=== PATIENT | male | born 1965 | race African-American/Black ===

== ENCOUNTER 2017-03-06 15:07 | Emergency (ER) | payer OTHER ==
[~2017-03-06 15:07] MED LIST: ACET325T9 PO; BACL10TA PO; LAMO25TA5 PO; LEVE100S18 PO; SCOP1PAT TP; SULF200O PEG
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
[2017-03-06 18:04] VITALS: BP 111/80
== END 2017-03-06 18:16 | disposition home or self-care (01) ==
LOC: ER 15:07
DX: J95.01 Hemorrhage from tracheostomy stoma (principal); K02.9 Dental caries, unspecified; R58 Hemorrhage, not elsewhere classified; Z88.5 Allergy status to narcotic agent; Y83.8 Other surgical procedures as the cause of abnormal reaction of the patient, or of later complication, without mention of misadventure at the time of the procedure; Y92.89 Other specified places as the place of occurrence of the external cause
CPT/HCPCS: 31502; 99284-25

== ENCOUNTER → 2017-09-03 | Day surgery (SDC) | payer OTHER ==
[~2017-09-03] MED LIST changes: -ACET325T9 PO; -BACL10TA PO; -LAMO25TA5 PO; -LEVE100S18 PO; +LIDOCAINE 1% PF 2 ML VIAL. ID; +MIDAZOLAM HCL/PF 2 MG/2 ML VIAL. IV; +PROPOFOL 20 ML IV; -SCOP1PAT TP; -SULF200O PEG; +fentaNYL PF VIAL 100 MCG/2 ML VIAL IV
[2017-09-03] MEDS: IV RINGERS,LACTATED 1000ML 1,000 ML IV (07:39)
== END ==
LOC: SURG 07:19
DX: K94.23 Gastrostomy malfunction (principal)
CPT/HCPCS: 43246; J2704

== ENCOUNTER → 2018-07-12 | Day surgery (SDC) | payer MEDICAID, OTHER ==
[~2018-07-12] MED LIST changes: +ACET325T9 PO; +BACL10TA PO; +IV RINGERS,LACTATED 1000ML 1,000 ML IV SCH; +LAMO25TA5 PO; +LEVE100S18 PO; -LIDOCAINE 1% PF 2 ML VIAL. ID; -MIDAZOLAM HCL/PF 2 MG/2 ML VIAL. IV; -PROPOFOL 20 ML IV; +SCOP1PAT11 TP; +SULF200O PEG; +diphenhydrAMINE 50 MG/ML VIAL IV ONE; +diphenhydrAMINE 50 MG/ML VIAL ONE; -fentaNYL PF VIAL 100 MCG/2 ML VIAL IV
[2018-07-12 17:12] VITALS: BP 145/68
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
== END | disposition home or self-care (01) ==
LOC: SURG 15:27
PROVIDERS: ATTEND Internal Medicine Gastroenterology
DX: K94.23 Gastrostomy malfunction (principal); K29.50 Unspecified chronic gastritis without bleeding; J45.909 Unspecified asthma, uncomplicated; M19.90 Unspecified osteoarthritis, unspecified site; Z79.899 Other long term (current) drug therapy; Z98.890 Other specified postprocedural states; Z87.11 Personal history of peptic ulcer disease; Y83.8 Other surgical procedures as the cause of abnormal reaction of the patient, or of later complication, without mention of misadventure at the time of the procedure
CPT/HCPCS: 43246; 99152; J1200; 99151; G0500

== ENCOUNTER 2019-06-21 11:34 | Emergency (ER) | payer OTHER ==
[~2019-06-21] VITALS: Ht 185.4 cm; Wt 79.4 kg
[~2019-06-21 11:34] MED LIST changes: -IV RINGERS,LACTATED 1000ML 1,000 ML IV SCH; -diphenhydrAMINE 50 MG/ML VIAL IV ONE; -diphenhydrAMINE 50 MG/ML VIAL ONE
[2019-06-21 13:50] VITALS: BP 136/85
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
== END 2019-06-21 14:24 | disposition home or self-care (01) ==
LOC: ER 11:34
DX: T85.528A Displacement of other gastrointestinal prosthetic devices, implants and grafts, initial encounter (principal); Z87.440 Personal history of urinary (tract) infections; Y73.2 Prosthetic and other implants, materials and accessory gastroenterology and urology devices associated with adverse incidents
CPT/HCPCS: 43762; 99284

== ENCOUNTER 2021-07-21 14:39 | Inpatient (IN) | payer OTHER ==
[2021-07-21] VITALS (8 sets, daily range): BP systolic 86–107; BP diastolic 46–61
[~2021-07-21] VITALS: Ht 170.2 cm; Wt 40.5 kg
[~2021-07-21 14:39] MED LIST changes: -SCOP1PAT11 TP; +SCOP1PAT12 TP
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
[2021-07-21] MEDS ORDERED: IV NORMAL SALINE 1000ML BAG 1,000 ML IV ONE ×2 (15:00→17:30)
[2021-07-21] MEDS ORDERED: ACETAMINOPHEN 650 MG SUPP.RECT. PR ONE (15:00)
[2021-07-21 16:12] LABS: BASO % 0 % (0-3); EOS % 0 % (0-3); HEMOGLOBIN 17.7 g/dL (13.0-17.5); LYMPH # 0.3 x10^3/uL (1.0-4.8); LYMPH % 3 % (24-48); MEAN CORPUSCULAR HEMOGLOBIN 29 pg (25-35); MEAN CORPUSCULAR HGB CONC 31 g/dL (31-37); MEAN CORPUSCULAR VOLUME 92 fL (79-100); MONO # 0.4 x10^3/uL (0.0-1.1); MONO % 4 % (0-9); NEUT # 8.4 x10^3/uL (1.8-7.7); NEUT % 92 % (31-73); PLATELET COUNT 277 x10^3/uL (140-400); RED BLOOD COUNT 6.18 x10^6/uL (4.30-5.70); RED CELL DISTRIBUTION WIDTH 15.5 % (11.5-14.5); WHITE BLOOD COUNT 9.1 x10^3/uL (4.0-11.0)
--- NOTE | 2021-07-21 16:35 | RAD ---
XR CHEST 1V History: Fever and dyspnea Comparison: 10/08/2015. Technique: Portable AP radiograph of the chest. Findings: There is a tracheostomy tube in expected positioning with tip projecting approximately 3.2 cm above t he maggy. Central venous catheter, possibly left IJ approach tip projects in the region of the right atrium. Diminished right lung volumes with new right airspace opacities diffusely. No pleural effusi on or pneumothorax. Cardiomediastinal silhouette and pulmonary vasculature are within normal limits. Prominent well-formed stool throughout the upper abdomen. Surgical clips in the upper abdomen. A retr ievable IVC filter is identified. Impression: 1. Right lung multifocal opacities concerning for pneumonia. 2. Central venous catheter with tip projecting at the right atrium. 3. A retrievable IVC filter is noted, and the referring physician is encouraged to ensure that a man agement plan for this filter is in place. If no such plan is present, referral to an interventional c linician on a non-emergent basis should be considered. The [employer] appropriaten ess criteria for placement and management of IVC filters can be found on the web at: https://acsearch.acr.org/docs/21740/Narrative/ Electronically signed by: Jose D Toledo MD (07/21/2021 4:32 PM) [facility]
[2021-07-21 16:41] LABS: BILIRUBIN,URINE MODERATE (NEG); CLARITY,URINE CLEAR; COLOR,URINE ORANGE; NITRITE,URINE NEGATIVE (NEG); PH,URINE 5.5 (<5.0-8.0); PROTEIN,URINE 100 mg/dL (NEG-TRACE)
[2021-07-21 16:46] LABS: ALBUMIN 2.5 g/dL (3.4-5.0); ALBUMIN/GLOBULIN RATIO 0.4 (1.0-1.7); CALCIUM 9.3 mg/dL (8.5-10.1); CREATININE 2.6 mg/dL (0.7-1.3); GFR 31.3; POTASSIUM 3.3 mmol/L (3.5-5.1); TOTAL BILIRUBIN 0.9 mg/dL (0.2-1.0); TOTAL PROTEIN 8.6 g/dL (6.4-8.2)
[2021-07-21 17:11] LABS: HYALINE CASTS, URINE MANY /HPF
[2021-07-21 17:13] LABS: RBC,URINE OCC /HPF (0-2)
[2021-07-21 17:15] LABS: AMORPHOUS SEDIMENT,UR PRESENT /HPF; BACTERIA,URINE FEW /HPF (0-FEW); OVAL FAT BODIES,URINE PRESENT /HPF
[2021-07-21] MEDS ORDERED: levETIRAcetam 1,000mg PREMIX 100 ML IV SCH (17:15)
[2021-07-21] MEDS ORDERED: PIP/TAZO PER PHARMACY MC PRN (17:15)
[2021-07-21] MEDS ORDERED: PIPERACILLIN/TAZOBACTAM 3.375 GM in IV NORMAL SALINE 50ML 50 ML IV ONE (17:15)
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
[2021-07-21] MEDS ORDERED: ONDANSETRON PF 4 MG/2 ML VIAL. IVP PRN (17:30)
[2021-07-21] MEDS ORDERED: VANCOMYCIN 750 MG in IV NORMAL SALINE 250ML 250 ML IV ONE (17:30)
[2021-07-21] MEDS ORDERED: ACETAMINOPHEN 325 MG TABLET. PO PRN (17:30)
[2021-07-21 17:54] LABS: INFLUENZA A PATIENT NEGATIVE (NEGATIVE); INFLUENZA B PATIENT NEGATIVE (NEGATIVE)
[2021-07-21 18:02] LABS: % ATYL 1 % (0-0); % BANDS 16 % (0-9); % LYMPHS 6 % (24-48); % METAS 1 % (0-0); % MONOS 3 % (0-10); % MYELOS 1 % (0-0); % SEGS 72 % (35-66); NUCLEATED RBC 2; PLT ESTIMATE ADEQUATE (ADEQUATE); TOXIC VACUOLATION SLIGHT
[2021-07-21] MEDS: levETIRAcetam 1,000mg PREMIX 100 ML IV SCH (18:02)
[2021-07-21] MEDS: VANCOMYCIN PER PHARMACY MC PRN (18:21)
[2021-07-21] MEDS: LANSOPRAZOLE 30 MG TAB.RAP.DR FT SCH (23:04)
[2021-07-21] MEDS: HEPARIN for SUB-Q USE 5,000 UNIT/ML VIAL. SQ SCH (23:05)
[2021-07-22] VITALS (13 sets, daily range): BP systolic 86–111; BP diastolic 58–65
[2021-07-22] MEDS: PIPERACILLIN/TAZOBACTAM 2.25 GM in IV NORMAL SALINE 50ML 50 ML IV SCH ×3 (04:45→21:15)
[2021-07-22 07:38] LABS: ALBUMIN/GLOBULIN RATIO 0.5 (1.0-1.7); CALCIUM 7.4 mg/dL (8.5-10.1); CREATININE 1.6 mg/dL (0.7-1.3); GFR 54.8; TOTAL BILIRUBIN 0.7 mg/dL (0.2-1.0); TOTAL PROTEIN 6.1 g/dL (6.4-8.2)
[2021-07-22 07:41] LABS: POTASSIUM 2.6 mmol/L (3.5-5.1)
[2021-07-22] MEDS: VANCOMYCIN PER PHARMACY MC PRN (08:01)
--- NOTE | 2021-07-22 08:13 | NUR ---
Pharmacy Vancomycin Dosing Note S: Consulted to monitor and dose vancomycin started 07/21/21. O: NANY HDZ is a 56 year old M with Sepsis and Pneumonia. Other Antibiotics: ZOSYN LABS: Last BUN: 86 Last Creatinine: 1.6 Creatinine Clearance: 30 mL/min Last WBC: 9.1 Last Procalcitonin: 7.15 Tmax (past 24 hours): 103.5 Microbiology: 07/21 blood cx pending 07/21 urine cx pending 07/21 resp cx pending I/O: 1050/270 Last dose given 07/21/21 at 1823 Vancomycin Dosing: Dosing Weight: Actual Target Trough: 15-20 A: Based on: improvement in renal function. P: 1. Increase to Vancomycin 500 mg IV q24h. 2. Follow up Trough level on 07/23/21 at 1730. 3. Pharmacy will continue to monitor, follow and adjust therapy as needed. ANIKET HESTER RPH, 07/22/21 0814
[2021-07-22] MEDS: POTASSIUM CHLORIDE 20MEQ 100 ML IV SCH ×4 (08:21→12:25)
[2021-07-22] MEDS ORDERED: POTASSIUM CL 40MEQ D5-0.45NACL 1,000 ML IV SCH (08:30)
--- NOTE | 2021-07-22 08:31 | PDOC ---
Provider Note Date of Service: DATE: 07/22/21 TIME: 08:28 Provider Note sepsis from R pneumonia, covid neg, likely gram neg or mrsa- severe dehydration, high Na+, low K+, getting iv fluids re same , add free water , vanc/zosyn , poor prognosis Justifications for Admission Other Justification SOURAV BLAND MD Jul 22, 2021 08:31
[2021-07-22] MEDS: HEPARIN for SUB-Q USE 5,000 UNIT/ML VIAL. SQ SCH ×2 (08:36→21:19)
[2021-07-22] MEDS: levETIRAcetam 1,000mg PREMIX 100 ML IV SCH ×2 (08:37→21:15)
[2021-07-22] MEDS: LANSOPRAZOLE 30 MG TAB.RAP.DR FT SCH ×2 (09:00→21:15)
--- NOTE | 2021-07-22 10:43 | NUR ---
Patient transferred up to room 524. Patient's sister was notified of transfer and given the phone number to the nurses station. Patient did not have belongings.
--- NOTE | 2021-07-22 15:42 | NUR ---
SS following for discharge planning. SS reviewed pt chart and discussed with pt RN. Pt is currently on trach collar. Pt is sleep medicine physician trach placement. PEG in place. Pt is from home with sister. Pt on IV Zosyn, IV Vancomycin, and IV Keppra. COVID19 negative. Possible need for LTC placement. Pt has Medicaid. Pt transferred to room 524. Gladis SAMANIEGO, to follow.
[2021-07-22] MEDS ORDERED: VANCOMYCIN 500 MG in IV NORMAL SALINE 100ML 100 ML IV SCH (18:00)
[2021-07-23 03:00] VITALS: BP 105/74
--- NOTE | 2021-07-23 04:24 | EKG ---
[facility] [address] [place] [address] Test Date: 2021-07-21 Test Time: 14:51:50 Pat Name: NANY HDZ Department: Room: 524 1 Gender: M Unit Technician: : 1965 Requested By: SARITA HENLEY Order Number: [id number] Reading MD: Ino Walden Measurements Intervals [place] Rate: 149 P: 61 IL: 86 QRS: 63 QRSD: 74 T: 69 QT: 280 QTc: 444 Interpretive Statements SINUS TACHYCARDIA ST & T ABNORMALITY, CONSIDER INFERIOR ISCHEMIA OR LEFT VENTRICULAR STRAIN Electronically Signed On 07-23-2021 20:04:01 PSYCH ASSISTANT by Ino Walden
[2021-07-23] MEDS: PIPERACILLIN/TAZOBACTAM 2.25 GM in IV NORMAL SALINE 50ML 50 ML IV SCH (05:08)
[2021-07-23 07:00] VITALS: BP 92/67
--- NOTE | 2021-07-23 08:14 | PDOC ---
Provider Note Date of Service: DATE: 07/23/21 TIME: 08:12 Provider Note vss, no more temp- peg tube fell out- 2/2 bc are + for gram neg rods- bmp re Na+ pending, continue zosyn re bacteremia/pneumonia, gi consult, ID als0- nature of G neg rods pending, susp PSE Justifications for Admission Other Justification SOURAV BLAND MD Jul 23, 2021 08:14
[2021-07-23 08:30] LABS: ALBUMIN 1.9 g/dL (3.4-5.0); ALBUMIN/GLOBULIN RATIO 0.4 (1.0-1.7); CALCIUM 7.5 mg/dL (8.5-10.1); CREATININE 0.7 mg/dL (0.7-1.3); GFR 142.2; POTASSIUM 3.9 mmol/L (3.5-5.1); TOTAL BILIRUBIN 0.6 mg/dL (0.2-1.0); TOTAL PROTEIN 6.7 g/dL (6.4-8.2)
[2021-07-23] MEDS: LANSOPRAZOLE 30 MG TAB.RAP.DR FT SCH ×2 (09:12→20:31)
[2021-07-23] MEDS: levETIRAcetam 1,000mg PREMIX 100 ML IV SCH ×2 (09:12→21:17)
[2021-07-23] MEDS: HEPARIN for SUB-Q USE 5,000 UNIT/ML VIAL. SQ SCH ×2 (09:14→21:22)
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
[2021-07-23 11:00] VITALS: BP 93/65
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
[2021-07-23] MEDS ORDERED: PIPERACILLIN/TAZOBACTAM 2.25 GM in IV NORMAL SALINE 50ML 50 ML IV SCH (12:00)
[2021-07-23] MEDS: PIPERACILLIN/TAZOBACTAM 3.375 GM in IV NORMAL SALINE 50ML 50 ML IV SCH ×3 (13:10→23:30)
[2021-07-23 15:00] VITALS: BP 97/65
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
[2021-07-23] MEDS ORDERED: VITS A & D/LANOLIN TOPICAL OINTMENT 42GM TUBE. TP PRN (17:00)
--- NOTE | 2021-07-23 17:03 | NUR ---
Wound/Ostomy Care Wound Type/Assessment: Patient has multiple pressure ulcers. See assessment. BLE has large amount of dry, peeling, scaly skin and toenails are overgrown. Treatment Recommendations/Plan: Right sacrum and trochanter/hip have exposed bone- apply iodoflex and foam. Penis- A&D ointment or calazime BID All other PU- skin prep and foam, change 2 x week BLE- ammonium lactate lotion BID Groin- nystatin powder BID Education provided: Pt unable to be educated d/t mental status Offloading surface/device: sand bed ordered, float heels, TQ2H Recommended Referrals/Tests: recommend palliative care Discharge Recommendations for dressings: see above
[2021-07-23] MEDS ORDERED: VANCOMYCIN 1 GM in IV NORMAL SALINE 250ML 250 ML IV SCH (18:00)
--- NOTE | 2021-07-23 18:00 | NUR ---
Patient kerns catheter leaking, kerns removed and attempted to replace but unable to place. Brief placed for the time being will attempt again at a later time.
[2021-07-23 19:30] VITALS: BP 88/57
[2021-07-23] MEDS: AMMONIUM LACTATE 12% TOPICAL LOTION 225GM BOTTLE. TP SCH (21:16)
[2021-07-23] MEDS: NYSTATIN TOPICAL POWDER 15GM BOTTLE. TP SCH (21:16)
[2021-07-23 23:53] VITALS: BP 94/64
[2021-07-24 05:08] LABS: ALBUMIN 1.9 g/dL (3.4-5.0); ALBUMIN/GLOBULIN RATIO 0.5 (1.0-1.7); CALCIUM 7.5 mg/dL (8.5-10.1); CREATININE 0.6 mg/dL (0.7-1.3); GFR 169.9; TOTAL BILIRUBIN 0.7 mg/dL (0.2-1.0); TOTAL PROTEIN 5.8 g/dL (6.4-8.2)
[2021-07-24 05:11] LABS: POTASSIUM 2.9 mmol/L (3.5-5.1)
[2021-07-24] MEDS: PIPERACILLIN/TAZOBACTAM 3.375 GM in IV NORMAL SALINE 50ML 50 ML IV SCH (05:19)
[2021-07-24 07:00] VITALS: BP 94/67
[2021-07-24] MEDS: levETIRAcetam 1,000mg PREMIX 100 ML IV SCH ×2 (08:25→21:42)
--- NOTE | 2021-07-24 08:37 | PDOC ---
Provider Note Date of Service: DATE: 07/24/21 TIME: 08:35 Provider Note peg out , labs better- d/w sister, time for hospice and she agrees - will dc iv fluid/zosyn/labs, add fentanyl, consult hospice as she wants him home if he survives a few more days Justifications for Admission Other Justification SOURAV BLAND MD Jul 24, 2021 08:37
[2021-07-24] MEDS: fentaNYL 25MCG/HR PATCH 1 PATCH PATCH.TD72 TD SCH (10:05)
[2021-07-24] MEDS: NYSTATIN TOPICAL POWDER 15GM BOTTLE. TP SCH ×2 (10:06→21:43)
[2021-07-24] MEDS: AMMONIUM LACTATE 12% TOPICAL LOTION 225GM BOTTLE. TP SCH ×2 (10:06→21:42)
[2021-07-24 11:00] VITALS: BP 94/64
--- NOTE | 2021-07-24 11:40 | PDOC ---
Infectious Disease Note Subjective Subjective Patient is unresponsive ROS ROS No nausea vomiting diarrhea or fever Vital Sign Vital Signs Vital Signs Date Time Temp Pulse Resp B/P (MAP) Pulse Ox O2 Delivery O2 Flow Rate FiO2 07/24/21 10:05 93 8.0 07/24/21 08:30 Trach Collar 07/24/21 07:00 99.3 113 22 94/67 (76) 99.3 Physical Exam PHYSICAL EXAM GENERAL: Unresponsive gentleman, not in any distress. VITAL SIGNS: Stable HEENT: Both pupils are round and reacting. No conjunctival lesion, no lesion in the mouth. NECK: Supple, no JVP, no lymphadenopathy. LUNGS: Clear. HEART: S1, S2, regular. ABDOMEN: Soft, nontender, no organomegaly. EXTREMITIES: The patient has contractures and very enlarged toenails. NEUROLOGIC: The patient is unresponsive. Labs Lab Laboratory Tests Test 07/24/21 03:40 Sodium Level 161 mmol/L (136-145) Potassium Level 2.9 mmol/L (3.5-5.1) Chloride Level 120 mmol/L (98-107) Carbon Dioxide Level 29 mmol/L (21-32) Anion Gap 12 (6-14) Blood Urea Nitrogen 30 mg/dL (8-26) Creatinine 0.6 mg/dL (0.7-1.3) Estimated GFR (Cockcroft-Gault) 169.9 BUN/Creatinine Ratio 50 (6-20) Glucose Level 71 mg/dL (70-99) Calcium Level 7.5 mg/dL (8.5-10.1) Total Bilirubin 0.7 mg/dL (0.2-1.0) Aspartate Amino Transf (AST/SGOT) 43 U/L (15-37) Alanine Aminotransferase (ALT/SGPT) 28 U/L (16-63) Alkaline Phosphatase 88 U/L (46-116) Total Protein 5.8 g/dL (6.4-8.2) Albumin 1.9 g/dL (3.4-5.0) Albumin/Globulin Ratio 0.5 (1.0-1.7) Micro BLOOD CULTURE Final GRAM NEGATIVE RODS FINAL ID= PROVIDENCIA STUARTII Testing performed by [address] [address] director of consumer marketing: Kati Lu MD Organism 1 PROVIDENCIA STUARTII Organism 2 PROVIDENCIA STUARTII#2 2. PROVIDENCIA STUARTII#2 Target Route Dose RX AB Cost M.I.C. IQ ------ ----- ------ -- ------ --------- ------ AMOX/K'CLAVULAN R >16/8 CEFTAZIDIME/THERON S <=4 CEFOTAXIME S <=2 CEFEPIME S <=2 CEFTRIAXONE S <=1 CEFUROXIME S <=4 TRIMETH/SULFA R >2/38 LEVOFLOXACIN I 1 MEROPENEM S <=1 TETRACYCLINE R >8 AMIKACIN S <=16 AMP/SULBACTAM I 16/8 AZTREONAM S <=4 CEFAZOLIN R >16 CEFTAZIDIME S <=1 CEFOXITIN S <=8 CIPROFLOXACIN I 0.5 GENTAMICIN R 4 ERTAPENEM S <=0.5 PIP/TAZOBACTAM S <=8 TOBRAMYCIN R 4 AMPICILLIN R 16 Objective Assessment IMPRESSION: 1. Sepsis with lactic acidosis. 2. Fever. 3. Aspiration pneumonia. 4. Traumatic brain injury. 5. Hypernatremia. 6. Dehydration. Plan Plan of Care Hospice decided We will sign off SHAHID TRIMBLE MD Jul 24, 2021 11:40
--- NOTE | 2021-07-24 13:33 | NUR ---
SS following up with discharge planning. SS reviewed pt chart and discussed with pt RN. Pt is currently on trach collar. COVID19 negative. Pt's DPOA requesting hospice services at this time. DNR. SS contacted pt's DPOA and discussed hospice services. Pt's DPOA reported having no preference of company. Referrals phoned and faxed to [facility], ; fax [phone], and [facility], ; fax [phone]. SS will continue to follow for discharge planning.
[2021-07-24 15:00] VITALS: BP 90/62
[2021-07-24 19:00] VITALS: BP 99/69
[2021-07-24 23:00] VITALS: BP 95/67
[2021-07-25 06:24] LABS: ALBUMIN 1.8 g/dL (3.4-5.0); ALBUMIN/GLOBULIN RATIO 0.4 (1.0-1.7); CALCIUM 7.6 mg/dL (8.5-10.1); CREATININE 0.6 mg/dL (0.7-1.3); GFR 169.9; TOTAL BILIRUBIN 0.6 mg/dL (0.2-1.0); TOTAL PROTEIN 6.5 g/dL (6.4-8.2)
[2021-07-25 06:30] LABS: POTASSIUM 2.7 mmol/L (3.5-5.1)
[2021-07-25 07:00] VITALS: BP 97/68
[2021-07-25] MEDS: levETIRAcetam 1,000mg PREMIX 100 ML IV SCH (08:58)
[2021-07-25] MEDS: AMMONIUM LACTATE 12% TOPICAL LOTION 225GM BOTTLE. TP SCH ×2 (09:03→21:57)
[2021-07-25] MEDS: NYSTATIN TOPICAL POWDER 15GM BOTTLE. TP SCH ×2 (09:03→21:57)
--- NOTE | 2021-07-25 09:05 | PDOC ---
Provider Note Date of Service: DATE: 07/25/21 TIME: 09:05 Provider Note home hospice pending, dc lab draws , allow natural Justifications for Admission Other Justification SOURAV BLAND MD Jul 25, 2021 09:05
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
[2021-07-25 11:00] VITALS: BP 100/70
[2021-07-25 15:00] VITALS: BP 96/69
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
[2021-07-25 19:00] VITALS: BP 95/66
[2021-07-26 07:00] VITALS: BP 115/79
[2021-07-26] MEDS: AMMONIUM LACTATE 12% TOPICAL LOTION 225GM BOTTLE. TP SCH ×2 (09:37→21:00)
[2021-07-26] MEDS: NYSTATIN TOPICAL POWDER 15GM BOTTLE. TP SCH ×2 (09:37→21:00)
[2021-07-26 11:00] VITALS: BP 108/69
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
[2021-07-26 14:57] VITALS: BP 119/76
[2021-07-26 19:00] VITALS: BP 104/70
[2021-07-27 07:00] VITALS: BP 99/72
[2021-07-27] MEDS ORDERED: ACETAMINOPHEN 650 MG SUPP.RECT. PR PRN (08:15)
[2021-07-27] MEDS: fentaNYL 25MCG/HR PATCH 1 PATCH PATCH.TD72 TD SCH (10:51)
[2021-07-27] MEDS: AMMONIUM LACTATE 12% TOPICAL LOTION 225GM BOTTLE. TP SCH ×2 (10:51→21:05)
[2021-07-27] MEDS: NYSTATIN TOPICAL POWDER 15GM BOTTLE. TP SCH ×2 (10:51→21:05)
[2021-07-27 11:00] VITALS: BP 103/75
[2021-07-27 15:00] VITALS: BP 103/75
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
[2021-07-27 19:00] VITALS: BP 101/69
[2021-07-27 23:00] VITALS: BP 127/66
[2021-07-28 07:00] VITALS: BP 161/82
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
[2021-07-28 11:00] VITALS: BP 140/69
--- NOTE | 2021-07-28 12:10 | NUR ---
SW following. Discussed with RN, Abdoul Galvin spoke with APS on Wednesday and plan was to keep patient over the weekend. Abdoul following up with APS today. DANETTE notified [facility] of hold up. SW will continue to follow. Addendum: 07/28/21 at 1359 by LIBRA STARR SW APS stating pt can discharge home. Discharge orders faxed to [facility] - they are notifying the sister. Ambulance transportation arranged with [facility] for [address] orange picker machine operator. RN notified. No further SW needs.
[2021-07-28] MEDS: AMMONIUM LACTATE 12% TOPICAL LOTION 225GM BOTTLE. TP SCH (12:30)
[2021-07-28] MEDS: NYSTATIN TOPICAL POWDER 15GM BOTTLE. TP SCH (12:30)
[2021-07-28 14:38] VITALS: BP 99/73
--- NOTE | 2021-07-28 17:32 | NUR ---
Discharge Note: Patient discharged to home with sister and Hospice via EMS. Left IJ was discontinued and pressure was applied until bleeding stopped. EMS stopped back by hospital after transport asking for outside the hospital DNR form, there was none signed in the chart. This RN and another RN called and got verbal consent from sister who is DPOA, form faxed to Dr. Kamara @[phone], for him to sign and fax to [facility]. This RN called and spoke with staff to advise them that this needed to be signed and faxed EDER. Wound pictures were cleaned and pictured less than 24 hours prior to discharge so no discharge pictures were taken. Patient stable at time of discharge.
== END 2021-07-28 16:15 | disposition hospice, home (50) | DRG 871 ==
LOC: ER 14:39 → 1 WEST ICU 17:05 → 5 NORTH 07-22 10:25
PROVIDERS: ADMIT Family Medicine; ATTEND Family Medicine
PROC: 02H633Z Insertion of Infusion Device into Right Atrium, Percutaneous Approach (ICD-10-PCS; principal; 2021-07-21)
DX: A41.50 Gram-negative sepsis, unspecified (principal); E43 Unspecified severe protein-calorie malnutrition; G82.50 Quadriplegia, unspecified; J69.0 Pneumonitis due to inhalation of food and vomit; J96.01 Acute respiratory failure with hypoxia; N17.0 Acute kidney failure with tubular necrosis; J15.6 Pneumonia due to other Gram-negative bacteria; E87.0 Hyperosmolality and hypernatremia; G40.509 Epileptic seizures related to external causes, not intractable, without status epilepticus; I24.8 Other forms of acute ischemic heart disease; B02.9 Zoster without complications; E86.0 Dehydration; E87.6 Hypokalemia; R65.20 Severe sepsis without septic shock; Z51.5 Encounter for palliative care; Z74.01 Bed confinement status; Z79.899 Other long term (current) drug therapy; Z86.718 Personal history of other venous thrombosis and embolism; Z87.11 Personal history of peptic ulcer disease; Z87.891 Personal history of nicotine dependence; Z93.0 Tracheostomy status; Z95.828 Presence of other vascular implants and grafts; Z66 Do not resuscitate; Z20.822 Contact with and (suspected) exposure to COVID-19; Z87.820 Personal history of traumatic brain injury; L97.529 Non-pressure chronic ulcer of other part of left foot with unspecified severity; L85.3 Xerosis cutis
CPT/HCPCS: 36415; 36556; 71045; 80053; 81001; 83605; 83880; 84145; 84484; 85007; 85025; 87040; 87070; 87077; 87086; 87186; 87426; 87428; 93005; 94640; 94760; 96361; 96365; J1644; J2543; J3370; J3480; J7030; J7050; U0003; 99285-25; G0378